=== PATIENT | male | born 1950 ===

== ENCOUNTER 2018-02-08 10:15 | Inpatient (IN) | payer OTHER ==
[~2018-02-08] VITALS: Ht 180.3 cm; Wt 83.5 kg
[~2018-02-08 10:15] MED LIST: ASA-EC81 MG PO; ATENOLOL25 MG PO; GABAPENTIN300 MG PO; LIPITOR40 MG PO; LISINOPRIL10 MG PO; METFORMIN HCL500 MG PO; ZETIA10 MG PO
[2018-03-07] MEDS ORDERED: ATORVASTATIN CA80 MG (10:18)
== END 2018-03-16 17:45 | DRG 470 ==
LOC: SURG 03-14 07:00 → O/R 03-14 10:56 → SURG 03-14 10:56 → SURH 03-14 20:02 → SURG 03-14 20:04
PROVIDERS: Orthopaedic Surgery
PROC: 0SRB0JZ Replacement of Left Hip Joint with Synthetic Substitute, Open Approach (ICD-10-PCS; principal; 2018-03-14 07:00)
DX: M16.12 Unilateral primary osteoarthritis, left hip (principal); D62 Acute posthemorrhagic anemia; I10 Essential (primary) hypertension; E11.9 Type 2 diabetes mellitus without complications; I25.10 Atherosclerotic heart disease of native coronary artery without angina pectoris; Z95.1 Presence of aortocoronary bypass graft; Z85.46 Personal history of malignant neoplasm of prostate

== ENCOUNTER 2022-10-06 14:27 | Outpatient (CLI) | payer OTHER ==
[~2022-10-06 14:27] MED LIST changes: +ATORVASTATIN CA80 MG
== END 2022-10-06 14:29 | disposition home or self-care (01) ==
LOC: LAB 14:27
PROVIDERS: ATTEND General Practice
DX: Z20.822 Contact with and (suspected) exposure to COVID-19 (principal)